=== PATIENT | female | born 1985 ===

== ENCOUNTER → 2016-12-10 15:03 | Emergency (ER) | payer SELFPAY ==
[~2016-12-10 15:03] MED LIST: PPD test dose* 5 TU/0.1 ML TEST (*USE PPD ORDER SET*) ONE
== END | disposition home or self-care (01) ==
LOC: OHCORT 15:03
DX: Z00.00 Encounter for general adult medical examination without abnormal findings (principal); Z11.1 Encounter for screening for respiratory tuberculosis